=== PATIENT | male | born 1990 | race African-American/Black ===

== ENCOUNTER → 2020-11-23 | Outpatient (CLI) | payer OTHER, SELFPAY ==
--- NOTE | 2020-11-23 14:19 | REP ---
INDICATION: POSITIVE [place] TEST COMPARISON: None. TECHNIQUE: PA and lateral. FINDINGS: The mediastinum and cardiac silhouette are normal. The lung [place] are clear and without acute consolidation, effusion, or pneumothorax. The skeletal structures are intact and normal. IMPRESSION: No acute cardiopulmonary process. <Electronically signed by Bebeto Chowdhury > 11/23/20 [id number]
== END ==
LOC: M WUC 14:04
DX: R76.11 Nonspecific reaction to tuberculin skin test without active tuberculosis (principal)